=== PATIENT | male | born 2005 | race Caucasian/White ===

== ENCOUNTER 2024-06-29 18:59 | Emergency (ER) | payer BC, SELFPAY ==
[2024-06-29 19:12] VITALS: BP 123/78; PULSE 107; RESP 18; TEMP 37.3; O2SAT 97; BMI 22.9
--- NOTE | 2024-06-29 19:38 | ED.GENADULT ---
HPI - General Adult General Time Seen by Provider: 19:38 Date Seen: 06/29/24 Chief complaint: Cough Stated complaint: Not feeling well, has been sick since evening Time Seen by Provider: 06/29/24 19:02 Source: patient and RN notes reviewed Mode of arrival: ambulatory Limitations: no limitations History of Present Illness HPI narrative: This 18-year-old male is coming in with concern of not feeling well since Wednesday night. He has had body aches, fevers and chills. He has not checked his temperature but he is certain that he has had a fever. His skin is felt sensitive, is a generalized achiness. He has had a mild sore throat, mild cough. He really started having some nasal drainage and congestion today, thinks that the postnasal drainage has really started this slight sore throat today. He has had no nausea vomiting or diarrhea. He has been using ibuprofen every 6 hours, last used at 4:00 p.m.. His appetite is diminished but still drinking plenty of fluids. 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 He does not require any extra measures as far as workup per his report. Did ask him if his infectious disease doctor or high school band director recommended blood work like CBC or chest x-ray. He states that he usually just gets Tamiflu if it is influenza or Paxlovid if COVID. Did review with him that the swab also test for RSV which we have no treatment for. He does understand that. He is a college student. Related Data Home Medications ?Medication ?Instructions ?Recorded ?Confirmed No Known Home Medications 06/29/24 06/29/24 Previous Rx's ?Medication ?Instructions ?Recorded oseltamivir 75 mg capsule (Tamiflu) 75 mg PO BID 5 days #9 caps 06/29/24 Allergies Allergy/AdvReac Type Severity Reaction Status Date / Time amoxicillin Allergy Intermediate rash Verified 06/29/24 19:20 cefdinir (From Omnicef) Allergy Intermediate Rash Verified 06/29/24 19:20 Review of Systems Narrative: As per HPI. Exam Const: Vital Signs, click to edit/add: Vital Signs - 24 hr 06/29/24 19:12 Temperature 99.2 F Pulse Rate [Left P ulse Oximeter] 107 H Respiratory Rate 18 Blood Pressure [Ri ght Upper Arm] 123/78 Pulse Oximetry 97 Oxygen Delivery Me thod Room Air This 18-year-old male is alert, interactive, no apparent distress. Speech is normal, breathing easily on room air, no stridor, no hoarseness. Pupils equal round reactive, sclera clear. TMs are normal, normal translucency, no infection. Face is atraumatic. Oropharynx with slight pinkish change along the anterior tonsillar pillars, no significant exudates erythema, no tonsillar exudates or erythema, normal oral airway. Mucosa is well-hydrated, dentition good repair. Neck is supple, no adenopathy. Lungs are clear, good air entry, no wheezing or crackles, no tachypnea, no accessory muscle use. CV slightly fast regular, no murmur, normal S1-S2. Abdomen is soft, nondistended, nontender, no masses organomegaly. Skin visualized without rash. Documenting provider has reviewed patient's vital signs: yes Course Course ED Course: We will await his triple viral swab. Do not feel that other interventions are necessary at this time. Can consider white count and chest x-ray if his viral swab is normal. Reevaluation(s) Time of Reevaluation #1: 20:35 Reevaluation #1: Have reviewed with patient that he has influenza A. Discussed his desire for Tamiflu, will give a dose here tonight and send the rest into his pharmacy for the completion of it. He does need to started for to be effective. We discussed expectations for illness, signs and symptoms for return. Vital Signs Vital signs: Initial Vital Signs Temperature 99.2 F 06/29/24 19:12 Temperature Source Temporal Artery Scan 06/29/24 19:12 Pulse Rate 107 H 06/29/24 19:12 Respiratory Rate 18 06/29/24 19:12 Blood Pressure 123/78 06/29/24 19:12 Blood Pressure Mean 93 06/29/24 19:12 Blood Pressure Position Sitting 06/29/24 19:12 Pulse Oximetry 97 06/29/24 19:12 Oxygen Delivery Method Room Air 06/29/24 19:12 Vital Signs Temperature 99.2 F 06/29/24 19:12 Pulse Rate 107 H 06/29/24 19:12 Respiratory Rate 18 06/29/24 19:12 Blood Pressure 123/78 06/29/24 19:12 Pulse Oximetry 97 06/29/24 19:12 Oxygen Delivery Method Room Air 06/29/24 19:12 Temperature 99.2 F 06/29/24 19:12 Pulse Rate 107 H 06/29/24 19:12 Respiratory Rate 18 06/29/24 19:12 Blood Pressure 123/78 06/29/24 19:12 Pulse Oximetry 97 06/29/24 19:12 Oxygen Delivery Method Room Air 06/29/24 19:12 Medications Administered Medications: Discontinued Medications Generic Name Dose Route Start Last Admin Trade Name Alyce PRN Reason Stop Dose Admin Oseltamivir Phosphate 75 mg 06/29/24 20:35 06/29/24 20:47 Oseltamivir Phosphate 75 Mg Capsule PO 06/29/24 20:36 75 mg ONCE ONE Administration Medical Decision Making Lab Data Lab results reviewed: Yes I reviewed the patient's lab results Labs: Lab Results 06/29/24 Range/Units 19:23 SARS-CoV-2 (PCR) Negative SARS-CoV-2 (Negative) Influenza Type A (PCR) POSITIVE PCR FLU A A (Negative) Influenza Type B (PCR) Negative PCR FLU B (Negative) RSV (PCR) Negative PCR RSV (Negative) Discharge Plan Discharge Clinical Impression: Influenza A Patient Disposition: Home, Self-Care Condition: Stable Instructions: Influenza (ED) Additional Instructions: Next dose of Tamiflu due tomorrow morning. Can use Tylenol, ibuprofen, cough or cold medicines per package or bottle instructions as needed for symptom control. If you are not improving over the next 3-5 days, feel you are worsening at any point, please seek re-evaluation. Follow CDC guidelines for infection precautions to others. Activity Level: Activity as Tolerated Discharge Diet: Regular Prescriptions: New oseltamivir [Tamiflu] 75 mg capsule 75 mg PO BID 5 Days Qty: 9 0RF No Action No Known Home Medications Stand Alone Forms: [email or web address] Info Instructions
[2024-06-29 20:02] LABS: PCR FLU A POSITIVE PCR FLU A (Negative); PCR FLU B Negative PCR FLU B (Negative); PCR RSV Negative PCR RSV (Negative); SARS PCR* Negative SARS-CoV-2 (Negative)
--- OUTSIDE RECORDS SUMMARY | 2024-06-29 20:39 | XMS_ITS ---
Author Organization [facility] Address [address] [place] [address] [place] [id number] Care Team Providers Care Foreign Agent Name Role Phone Mariluz Adams Primary Care Provider REASON FOR VISIT Cancelled/Vaccine Meningicoccal Encounters Encounter Location Date Provider Diagnosis [facility] [address] [place] [address] [place] [phone] 03/27/2024 Mariluz Adams PLAN OF TREATMENT No Information Progress Notes * Xiang SIMMONSenDOB:2005 (18 yo M)Acc No.[id number]:03/27/2024 progress notes Patient: Yao SIMMONS Provider: YESENIA Frankel :2005 Age:18 Y Sex:Male Date:03/27/2024 Address:[address] [place] [id number] Subjective: * Chief Complaints: * 1. 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
--- OUTSIDE RECORDS SUMMARY | 2024-06-29 20:39 | XMS_ITS | Clinical Summary ---
Author Organization [facility] Address [place], [place] [address] Care Team Providers Care Speech Clinician Name Role Phone Amber Santos DO Primary Care Provid er Allergies Active Allergy Reactions Criticality Noted Date Comments Amoxicillin Rash 03/02/2023 Medications No known medications Active Problems Problem Noted Date Diagnosed Date IgA deficiency 03/02/2023 Hip pain, left 03/02/2023 Chronic nasal congestion 03/02/2023 Immunizations Name Administration Dates Next Due [id number] (Pediarix) 05/14/2005,03/10/2005 HIB PRP-T (ActHIB,Hiberix) 02/16/2007,,05/14/2005,2004 Hepatitis B (Peds) 04/23/2009,2004 Inactivated Polio Vaccine 10/02/2005 Influenza Virus, Unspecified 04/28/2019 MMR 08/20/2010 Pneumococcal conj 7-Valent ( Prevnar 7) 05/14/2006,01/19/2006,08/21/2005,2004,03/10/2005 Td, Preservative Free (age > = 7 Years) 10/11/2019 Social History Tobacco Use Types Packs/Day Years Used Date Smoking Tobacco: Never Smokeless Tobacco: Never Tobacco Cessation:Counseling Given: Not Answered Alcohol Use Standard Drinks/Week Comments Never 0 (1 standard drink = 0.6 oz pur e alcohol) PHQ-2 Answer Date Recorded PHQ-2 TOTAL SCORE 2 03/02/2023 Social Connections Answer Date Recorded Frequency of Communication with Friends and Fami ly Not on file 03/02/2023 Sex and Gender Information Value Date Recorded Sex Assigned at Not on file Legal Sex Male 12:37 PM CDT Gender Identity Not on file Sexual Orientation Not on file Obstetrics History Last Filed Vital Signs Vital Sign Reading Time Taken Comments Blood Pressure 107/77 03/02/2023 8:11 AM CDT Pulse 78 03/02/2023 8:11 AM CDT Temperature - - Respiratory Rate - - Oxygen Saturation - - Inhaled Oxygen Concentration - - Weight 71.7 kg (158 lb 1.6 oz) 03/02/2023 8:11 A M CDT Height 175.3 cm (5' 9) 03/02/2023 8:11 AM CDT Body Mass Index 23.35 03/02/2023 8:11 AM CDT Body Mass Index Percentile 66.76% 03/02/2023 8:1 1 AM CDT Growth Chart: CDC (Boys, 2-2 0 Years) Plan of Treatment Health Maintenance Due Date Last Done Comments Well Child Check for age 3-20 11/29/2007 Tdap 12/30/2015 HIV for age 15-65 12/30/2019 HPV series for age 9-26 (1 - Male 3-dose series) 12/30/2019 COVID-19 vaccine series (3 - Pfizer risk series) 11/18/2020 10/21/2020, 09/30/2020 Hepatitis C screening for age 18-79 2022 Pneumococcal series for age 6-49 (1 of 2 - PCV) 12/30/2023 05/14/2006, 01/19/2006, 08/21/2005, Additional history exists Influenza for age 9-49 01/16/2024 04/28/2019 BMI (ht and wt on same day) for age 18+ 03/02/2024 03/02/2023 Depression screening for age 12+ 03/02/2024 03/02/2023 Tetanus booster 10/10/2029 10/11/2019 Meningococcal series for age 11-21 Aged Out No longer eligible based on patient's age to complete this topic Insurance [employer] Care Teams Speech Clinician Relationship Specialty Start Date End Date Amber Santos DO [address] [place] [address] DULCE [place] [phone] PCP - General Internal Medicine 03/02/23
[2024-06-29] MEDS: OSELTAMIVIR PHOSPHATE 75 MG CAPSULE PO (20:47)
== END 2024-06-29 20:42 | disposition home or self-care (01) ==
PROVIDERS: Emergency Provider Family Medicine
DX: J10.1 Influenza due to other identified influenza virus with other respiratory manifestations (principal)
CPT/HCPCS: 87631; 99283; A9270